=== PATIENT | male | born 1990 | race Caucasian/White ===

== ENCOUNTER 2019-06-04 15:30 | Emergency (ER) | payer MEDICAID, SELFPAY ==
[2019-06-04 15:31] VITALS: BP 121/82; PULSE 98; RESP 16; TEMP 36.8; O2SAT 100; BMI 30.4
--- NOTE | 2019-06-04 15:55 | ED.VISSUMM ---
- ER Visit Summary Date of Service: 06/04/19 Chief Complaint: Sore throat History of Present Illness: The patient is a 29 M no seen past medical history. Prior cholecystectomy. Patient is about 2 weeks he has had drainage posterior pharynx. Is developed a sore throat. Denies any fever or chills. No cough or shortness of breath. No nausea, vomiting or diarrhea. Says he thinks this is from his seasonal allergies. He just went to be checked. Physical Examination: Young male no acute distress vital signs stable and afebrile. He does not look septic or toxic. Pulse ox 100% on room air no signs of hypoxia. H EENT exam normal. Posterior pharynx is normal. There is no erythema. No exudate. No trouble swallowing or breathing. No stridor or drooling. Neck nontender. Trachea nontender. No lymphadenopathy. Lungs clear to auscultation bilaterally. Heart regular rhythm no murmur. Abdomen is soft and nontender normal bowel sounds no peritoneal signs. Extremities moves all 4. Neurologically is awake alert with no focal motor deficit. Skin is unremarkable. Test Results: None Emergency Department Course and Treatment: During exam are consistent with a seasonal allergy pharyngitis. There is no signs of strep throat. Treatment Plan: Use his ocgc-hep-[id number] medication for his allergies. Warm salt water gargling. Follow-up if not improving. Disposition: Discharge Impression: Seasonal allergies with sore throat This note was generated with [employer] dictation software. It may contain incorrect words, spelling, and punctuation that were not noted in review of the chart prior to signing ED Disposition - Plan for ED Patient: Referrals: [facility] ,Out of [Primary Care Provider] -
--- NOTE | 2019-06-04 15:57 | ED.DEP ---
ED Disposition - Plan for ED Patient: Disposition: Home or Assisted Living Instructions: ED ALLERGY Seasonal Referrals: [facility],Out of [Primary Care Provider] - As Needed Additional Instructions: Warm salt water gargling. Benadryl or the [id number]-[id number] medication use for your allergies. Follow-up if not improving.
== END 2019-06-04 16:09 | disposition home or self-care (01) ==
LOC: ED 16:07
PROVIDERS: Emergency Provider Emergency Medicine
DX: J30.2 Other seasonal allergic rhinitis (principal); J02.9 Acute pharyngitis, unspecified; Z87.891 Personal history of nicotine dependence; Z90.49 Acquired absence of other specified parts of digestive tract
CPT/HCPCS: 99282

== ENCOUNTER 2019-10-04 16:16 | Emergency (ER) | payer MEDICAID, SELFPAY ==
[2019-10-04 16:18] VITALS: BP 129/80; PULSE 81; RESP 16; TEMP 36.5; O2SAT 96; BMI 31.4
[2019-10-04] MEDS: 0.9% Normal Saline 1,000 ML 1000 ML IV (17:18)
[2019-10-04 17:58] LABS: Absolute Lymphocyte Count 2.41 X10^3/uL (0.83-4.51); Absolute Neutrophil Count 4.2 X10^3/uL (2.0-7.7); Basophil# 0.03 X10^3/uL; Basophil% 0.4 % (0-1); Eosinophil# 0.25 X10^3/uL; Eosinophils% 3.3 % (0-5); Hematocrit 42.1 % (40-54); Hemoglobin 14.5 g/dL (13.0-16.5); Lymphocyte # 2.41 X10^3/ul (4.0); Lymphocyte % 31.8 % (19-41); Mean Corp Hgb Conc 34.4 g/dL (32-36); Mean Corpuscular Hgb 31.9 pg (27.0-32.0); Mean Corpuscular Volume 92.7 fL (80-94); Mean Platelet Vol. 10.6 fl (6.2-12.0); Monocyte# 0.63 X10^3/uL; Monocyte% 8.3 % (0-10); NRBC Flagged by Analyzer 0 % (0-5); Neutrophil # 4.24 X10^3/uL (2.7-7.7); Neutrophil % 55.8 % (47-70); Platelet Count 331 K/mm3 (150-450); RBC Distribution Width CV 11.5 % (11.6-14.6); RBC Distribution Width SD 39.2 fl (35.1-43.9); Red Blood Count 4.54 M/mm3 (4.6-6.2); White Blood Count 7.6 K/mm3 (4.4-11.0)
[2019-10-04 18:17] VITALS: BP 130/82; PULSE 67; RESP 22; O2SAT 96
[2019-10-04 18:19] LABS: ALB/GLOB Ratio 1.2 RATIO (0.9-2.4); AST(SGOT) 20 U/L (15-37); Alanine Aminotransfer ALT/SGPT 52 U/L (16-61); Albumin, Serum 3.8 g/dL (3.2-5.0); Alkaline Phosphatase 65 U/L (45-117); Anion Gap 3 (5-15); BUN 12 mg/dL (7-18); BUN/Creat Ratio 11.7 RATIO (10-20); Calcium,Total 8.8 mg/dL (8.5-10.1); Chloride 109 mmol/L (98-107); Creatinine, Serum 1.03 mg/dL (0.70-1.30); EST Glomerular Filtration Rate 91 mL/min (>60); Est Glom Filt Rate - Afr Amer 110 mL/min (>60); Estimated Creatinine Clearance 124.14 ml/min; Globulin 3.3 g/dL (2.2-4.2); Glucose 112 mg/dL (74-106); Potassium 3.7 mmol/L (3.5-5.1); Protein, Total 7.1 g/dL (6.4-8.2); Sodium Level 143 mmol/L (136-145)
--- NOTE | 2019-10-04 18:40 | ED.DCSUM_ITS ---
- ER Visit Summary Date of Service: 10/04/19 Chief Complaint: Weakness History of Present Illness: The patient is a 29 M who presents with generalized weakness that began today. Patient states he feels weak all over. Patient states nothing makes it better or worse. Patient states it is been constant all day today. Patient denies any fevers or chills. Patient admits to some mild pain in his chest but denies any shortness of breath or cough. Patient denies any nausea or vomiting. Patient does admit to some rhinorrhea but states this is similar to the rhinorrhea he has with his seasonal allergies. Physical Examination: Vital signs are stable. Patient is afebrile. Patient is in no acute distress. Oral mucosa is pink and moist. Neck is supple. Trachea is midline. There is no JVD. Heart was regular rate and rhythm. Lungs are clear and equal bilaterally. Abdomen is soft. Bowel sounds are normal. There is no tenderness. Cranial nerves II through XII are intact. There are no focal motor or sensory deficits. Test Results: CBC and comprehensive metabolic profile were within normal limits. Emergency Department Course and Treatment: Patient was given IV fluids. Patient was feeling better on reevaluation. Patient was instructed to follow-up with his primary care physician in 5 to 7 days. Patient understood and was agreeable with the plan. All questions were answered. Disposition: Discharge home Impression: General weakness This note was generated with [employer] dictation software. It may contain incorrect words, spelling, and punctuation that were not noted in review of the chart prior to signing ED Disposition - Plan for ED Patient: Disposition: Home or Assisted Living Diagnosis: General weakness Instructions: ED Weakness [facility] [place] Referrals: [facility]NA[facility] WARE [Other] - 5-7 Days
[2019-10-04 19:11] VITALS: BP 135/80; PULSE 69; RESP 21; O2SAT 95
== END 2019-10-04 19:14 | disposition home or self-care (01) ==
PROVIDERS: Emergency Provider Emergency Medicine
DX: R53.1 Weakness (principal); R07.9 Chest pain, unspecified; Z87.891 Personal history of nicotine dependence
CPT/HCPCS: 80053; 85025; 96360; 96361; 99283; J7030; A4216